=== PATIENT | female | born 1945 | race Caucasian/White ===

== ENCOUNTER 2024-08-24 08:41 | Outpatient (REF) | payer MEDICARE, OTHER, SELFPAY | END 2024-08-24 08:42 | disposition home or self-care (01) | LOC: HO.HOSX 08:41 | PROVIDERS: Visit Provider Orthopaedic Surgery | DX: M25.559 Pain in unspecified hip (principal); M16.11 Unilateral primary osteoarthritis, right hip | CPT/HCPCS: 72170; 99202 ==

== ENCOUNTER 2024-08-24 13:08 | Outpatient (AMB) | payer MEDICARE, OTHER, SELFPAY ==
--- NOTE | 2024-08-24 13:11 | A.OFFVIS_ITS ---
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 Patient reports that she has had ongoing bilateral hip pain for quite some time now. Right Hip worse than the left. 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 She does not take anything for her pain. She does try to remain active in walking. Allergies doxycycline Allergy (Unknown, Verified 02/21/17 00:00) Sulfa (Sulfonamide Antibiotics) Allergy (Unknown, Verified 02/21/17 00:00) Codeine Phosphate Allergy (Unknown, Uncoded 02/21/17 00:00) Medical Tape Allergy (Unknown, Uncoded 02/21/17 00:00) HPI HPI [employer] DRIER- B/L hip pain: Details: This is a very pleasant 78-year-old woman who comes in today with occasional right hip pain. She was seen by her primary care doctor and was referred here. She states that she has some discomfort when she stands from a seated position and when she gets up in the morning but this resolves with ambulation. She works in a sedentary job and is able to get through most of her day with minimal pain. She is able to walk 30-40 minutes without discomfort. She occasionally feels like she may overdo it and does have pain that she localizes to her back and her hip. She does not feel that she is severely limited in daily activities at this time. 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 Resp Other: No audible wheezing Effort & Inspection: normal respiratory effort Back/Spine/Pelvis Cervical Spine: normal cervical lordosis Skin General skin exam: no rashes or lesions noted Neuro General: no focal motor deficits Extrem Other: There is a mild Trendelenburg gait with limited external and internal rotation of the right hip compared to the left hip. Mildly positive impingement test with internal rotation of 0 degrees while flexed. There is approximately 20 degrees of internal rotation on the contralateral limb. Psych Appearance: grossly normal and well kempt Mental Status: mental status grossly normal Speech and movement: Normal speech and movement present Affect: normal affect Attitude: cooperative Results Reviewed Results Reviewed: I personally reviewed relevant radiographs. There is severe osteoarthritis of the right hip. Assessment & Plan Assessment & Plan (1) Osteoarthritis of right hip: Code(s): M16.11 - Unilateral primary osteoarthritis, right hip Category: Medical Plan: This is a 78-year-old woman with severe osteoarthritis of the right hip. She is only mildly limited and does not feel the quality of her life is diminished in his able to engage in all her tasks. I do think this may become a more severe problem as her gait mechanics are affected but I think arthroplasty would be too aggressive at this time. I discussed this with her. I discussed the risks, benefits alternatives of arthroplasty. At this time she is doing well and I do not think she would benefit from physical therapy or injections. I will see her back in 6 months and we can see how she is doing at that time. She agrees with and is amenable to this plan. Orders: Orders XR pelvis 1-2V Today M25.559 - Pain in unspecified hip Coding Level of Care Code New Pt Level 4 (83724) Diagnoses Osteoarthritis of right hip M16.11
[2024-08-24 13:18] VITALS: BMI 22.9
== END 2024-08-24 13:42 | disposition home or self-care (01) ==
PROVIDERS: PCP Neuromusculoskeletal Medicine, Sports Medicine; Visit Provider Orthopaedic Surgery
DX: M16.11 Unilateral primary osteoarthritis, right hip (principal)
CPT/HCPCS: 99204